=== PATIENT | female | born 1995 | race Caucasian/White ===

== ENCOUNTER 2019-06-20 05:38 | Inpatient (IN) | payer MEDICAID ==
[2019-06-20] VITALS (8 sets, daily range): BP systolic 102–121; BP diastolic 55–65; Ht 162.6 cm; Wt 90.3 kg
[~2019-06-20] VITALS: Ht 162.6 cm; Wt 90.3 kg
--- NOTE | ~2019-06-20 | OP ---
PATIENT NAME: HILARIA ORDAZ MEDICAL RECORD: [id number] :94 [id number] ADMISSION DATE:06/20/19 SURGEON: JUNE MOORE DO DATE OF OPERATION: 06/20/2019 PREOPERATIVE DIAGNOSIS: Scheduled repeat . POSTOPERATIVE DIAGNOSIS: Scheduled repeat . PRIMARY SURGEON: June Moore DO ANESTHESIA: Spinal. PROCEDURE: Repeat low transverse section via Pfannenstiel incision. FINDINGS: Male infant, weight 6 pounds 13 ounces, Apgars 9 and 9, delivered at 8:13 a.m. Nuchal cord times 1. Clear amniotic fluid. Normal appearing uterus, bilateral fallopian tubes and bilateral ovaries. SPECIMENS: Placenta and cord. ESTIMATED BLOOD LOSS: 800 cc. IV FLUIDS: 1500 cc. URINE OUTPUT: 400 cc clear urine. COMPLICATIONS: None. CONDITION: Stable. PROCEDURE IN DETAIL: The risks, benefits, alternatives and indications of the procedure were discussed with the patient. She voiced an understanding of the procedure and signed the consent. She was taken to the OR where spinal anesthesia was administered and found to be adequate. She was placed in the dorsal supine position with a leftward tilt. She was prepped and draped in the normal sterile fashion. A Pfannenstiel skin incision was made with the scalpel and carried down to the underlying layer of the fascia with the Bovie. The fascia was incised in the midline and extended laterally. The inferior aspect of the fascial incision was grasped with Hector clamps and the rectus muscle was dissected off sharply. Attention was then turned to the superior aspect of the fascial incision. The rectus muscle was dissected off in a similar fashion. The rectus muscle was in the midline down to the level of peritoneum. The peritoneum was identified and noted to be free of adherent bowel and entered bluntly. The peritoneum was further with gentle traction. The bladder blade was inserted. A bladder flap was created with Metzenbaum scissors. Then the uterus was incised in a transverse fashion. The incision was extended with cephalad-caudad traction. The infant's head was brought to the incision. Nuchal cord times 1 was noted and reduced over the head prior to delivery of the body. The infant was delivered without difficulty. Mouth and nose were suctioned. Cord was clamped and cut and the was handed off to awaiting pediatricians. The placenta was manually removed. The uterus was exteriorized and a moist lap was used to assure complete removal of placental membranes. The hysterotomy was closed with 0 Vicryl in a running locked fashion with good hemostasis noted. The posterior cul-de-sac was irrigated with warm OPERATIVE REPORT [id number] HILARIA ORDAZ sterile water. Uterus, ovaries and tubes were noted to be grossly normal and returned back to the abdominal cavity. A moist laparotomy sponge was used to assure complete removal of blood clots and fluid from the abdominal cavity. The hysterotomy was reinspected and noted to be hemostatic. Rectus muscle was closed with 2-0 Monocryl in a running fashion with good hemostasis. The fascial incision was closed with 0 Vicryl in a running fashion with good hemostasis. The skin was closed in a subcuticular fashion with 3-0 Monocryl and Dermabond covering. All needle, lap, sponge, and instrument counts were correct times 2. The patient tolerated the procedure well and she was taken to the recovery room in stable condition. TRANSINT:[id number] Voice Confirmation ID: [id number] DOCUMENT ID: [id number] JUNE MOORE DO CC: [id number] DICTATION DATE: 06/20/19900 MASTIC WORKER: 06/20/19 1149 ADM IN [place] [id number] [place] [id number]
[~2019-06-20 05:38] MED LIST: EZFE 200200 MG PO; MOTRIN600 MG PO; PERCOCET 5/3251 TA1 PO; PRENATAL COMPLE1 TAB PO
[2019-06-20 06:02] LABS: HEMATOCRIT 26.1 % (36.0-48.0); MCH 20.7 pg (26.0-34.0); MCHC 28.7 g/dL (31.0-37.0); MCV 71.9 fL (80.0-100.0); MEAN PLATELET VOLUME 8.8 fL (7.4-10.4); RBC 3.63 10x6/uL (4.00-5.40); RDW 16.9 % (11.5-14.5); WBC 6.3 10x3/uL (4.8-10.8)
[2019-06-20 06:08] LABS: HEMOGLOBIN 7.5 g/dL (12-16)
[2019-06-20 06:39] LABS: AMORPHOUS SEDIMENT <1+ /lpf (NONE SEEN); BACTERIA MANY /hpf (NEGATIVE); BILIRUBIN NEGATIVE (NEGATIVE); GLUCOSE NEGATIVE (NEGATIVE); GRANULAR CAST RARE /lpf (NONE SEEN); KETONE NEGATIVE (NEGATIVE); NITRITE NEGATIVE (NEGATIVE); RED CELLS - URINE OCC /hpf (0-5); SPECIFIC GRAVITY 1.025 (1.005-1.020); UROBILINOGEN NORMAL (NORMAL)
--- NOTE | 2019-06-20 08:43 | NUR ---
PRANEETH FROM RESPIRATORY CALLS TO UNIT TO REPORT CORD PH ART 7.29, AND VENOUS 7.34.
--- NOTE | 2019-06-20 09:13 | NUR ---
ICE CHIPS PROVIDED AND PT TOLERATING WITHOUT ANY DIFFICULTIES SWALLOWING OR ANY N/V. ICE APPLIED TO INCISION SITE. DRSG CDI. FUNDUS PALPATED AND FIRM. BLOOD INFUSING @125ML/HR VIA L.HAND 18GUAGE. LR W/30PIT INFUSING VIA R.HAND PIV @125ML/HR. PT REMAINS NUMB FROM UMBILICUS TO TOES FROM SPINAL. NO PAIN OR NEEDS. VSS. WILL PASS ON REPORT TO L&D NURSE AND TRANSPORT PT TO HER ROOM.
--- NOTE | 2019-06-20 09:28 | NUR ---
RECEIVED TO ROOM BY BED FROM RECOVERY, PT IS AWAKE AND ALERT. SHE RATES PAIN AT 0/10 AT THIS TIME, FUNDUS FIRM AT U/2 WITH LIGHT BLEEDING, NO CLOTS NOTED WITH MASSAGE. BIKINI INCISION COVERED WITH LARGE WHITE BANDAGE THAT IS CLEAN AND DRY. ICE PACK APPLIED. BOWEL SOUNDS HYPOACTIVE IN BOTH LOWER QUADRANTS. SCD'S BILAT PER ORDERS. IV TO RIGHT HAND INFUSING NS WITH 20 UNITS PITOCIN AT 125ML/HR. PRBC INFUSING TO L HAND IV, THIS IS PLACED ON PUMP AT 150ML/HR. PT DENIES NAUSEA BUT ALSO REFUSES ANYTHING TO DRINK. SIG OTHER AT BEDSIDE, SIDE RAILS UP X 2 WITH CALL LIGHT AND PHONE IN REACH.
--- NOTE | 2019-06-20 10:00 | NUR ---
LARGE CUP OF ICE WITH WATER AND STRAWBERRY JELLO PROVIDED PER HER REQUEST. FUNDUS FIRM AT U/2 WITH LIGHT BLEEDING NOTED. KIANA PAD CHANGED. NO OTHER NEEDS AT THIS TIME.
--- NOTE | 2019-06-20 10:15 | NUR ---
PRBC INFUSION HAS COMPLETED. FLUSHING WITH 100ML NS. PT RATES PAIN AT 3/10 AT THIS TIME.
--- NOTE | 2019-06-20 10:30 | NUR ---
PT CALLS OUT REQUESTING PAIN MED. THIS RN TO ROOM, SHE STATES THAT SHE SNEEZED AND PAIN IS NOW AT A 6/10. MORPHINE 2MG DILUTED IN 5ML NS GIVEN SIVP, TORDAL 30MG DILUTED IN 5ML NS GIVEN SIVP SCANNED TO EMAR. FUNDUS FIRM AT U/2 WITH LIGHT BLEEDING BUT NO CLOTS WITH MASSAGE. UNDERPAD CHANGED AND PT TILTED TO HER RIGHT SIDE WITH PILLOW TO BACK. CALL LIGHT IN REACH.
--- NOTE | 2019-06-20 10:50 | NUR ---
FUNDUS FIRM AT U/2 WITH LIGHT BLEEDING NOTED. PT STILL UNABLE TO MOVE HER LEGS AND RATES PAIN AT 0/10.
--- NOTE | 2019-06-20 11:30 | NUR ---
2ND UNIT PRBC STARTED, PT RATES PAIN AT 3/10. LARGE ICE WATER PER REQUEST.
--- NOTE | 2019-06-20 11:45 | NUR ---
DENIES NEEDS AT THIS TIME, TRANSFUSION RATE INCREASE TO 100ML/HR. CALL LIGHT IN REACH.
--- NOTE | 2019-06-20 12:30 | NUR ---
LARGE CUP OF ICE PER REQUEST. PT IS ABLE TO MOVE HER FEET AND STARTING TO MOVE HER LEGS BUT STATES THEY ARE "HEAVY FEELING AND NUMB" MAGUIRE CATH TO BEDSIDE DRAIN WITH 250ML CLEAR URINE NOTED.
--- NOTE | 2019-06-20 13:30 | NUR ---
2nd unit PRBC HAVE COMPLETED, NS INFUSING TO FLUSH. RATES PAIN AT 3/10, FUNDUS FIRM AT U/1 WITH LIGHT BLEEDING NOTED, UNDERPAD CHANGED, PT TILTED TO HER LEFT SIDE. LIGHTS TURNED DOWN PER REQUEST, CALL LIGHT IN REACH.
--- NOTE | 2019-06-20 14:15 | NUR ---
SECOND UNIT TRANSFUSION COMPLETED, LEFT HAND PIV FLUSHED AND SALINE LOCKED.
--- NOTE | 2019-06-20 14:30 | NUR ---
ORAL TEMP 97.9
--- NOTE | 2019-06-20 16:00 | NUR ---
pt resting with eyes closed and resp even, no signs of distress. pt left undisturbed.
[2019-06-20 16:32] LABS: BASOPHILS 0.2 % (0-2); EOSINOPHILS 0.5 % (0-7); IMMATURE GRANULOCYTES 0.7 % (0-5); LYMPHOCYTES 19.9 % (15-50); MCHC 29.4 g/dL (31.0-37.0); MEAN PLATELET VOLUME 9.1 fL (7.4-10.4); MONOCYTES 9.3 % (2-11); NEUTROPHILS 69.4 % (40-80); PLATELET COUNT 281 10x3/uL (130-400); RDW 17.8 % (11.5-14.5)
[2019-06-20 16:34] LABS: HEMOGLOBIN 9.7 g/dL (12-16); MCV 74.8 fL (80.0-100.0); RBC 4.41 10x6/uL (4.00-5.40)
--- NOTE | 2019-06-20 17:45 | NUR ---
PAIN MED GIVEN FOR PAIN THAT SHE RATES AT 10/10. SHE IS ALSO ASKING FOR SALINE LOCK TO BE REMOVED FROM RIGHT HAND, STATES SITE IS VERY TENDER AND PAINFUL WHEN TOUCHED. CATH REMOVED AND NOTED TO BE INTACT. PT ASK TO GET UP OUT OF BED. SHE IS ABLE TO MOVE BOTH LEGS FREELY WITHOUT COMPLAINT, MAGUIRE CATH REMOVED INTACT WITH TOTAL OF 1800ML CLEAR URINE OUTPUT NOTED. SHE IS ABLE TO MOVE HERSELF TO SITTING UP ON SIDE OF BED, DENIES NAUSEA OR DIZZINESS. AMB TO BATHROOM PER SELF AND ABLE TO VOID 300ML WITHOUT COMPLAINT. PROVIDED WITH WARM WET WASH CLOTH FOR KIANA CARE. KIANA PAD/MESH BRIEFS ON AND GOWN CHANGED. BACK TO BED AND POSITION SELF FOR COMFORT. SIG OTHER AT BEDSIDE WITH CALL LIGHT IN REACH.
--- NOTE | 2019-06-20 18:46 | NUR ---
PT AMB TO VENDING MACHINE WITH SIG OTHER.
--- NOTE | 2019-06-20 19:10 | NUR ---
PT IN NURSERY. THIS RN TO NURSERY TO INTRODUCE SELF TO PATIENT AT THIS TIME. PT AT SIDE OF WARMER WITHOUT DISTRESS. Ja MICHELLE RN
--- NOTE | 2019-06-20 20:00 | NUR ---
PT REC'D IN BED WITH S/O AT BEDSIDE AND SUPPORTIVE. SALINE LOCK TO THE LEFT HAND. SITE CLEAR. DRESSING TO ABDOMEN CDI. FUNDUS FIRM WITH SMALL BLEEDING NOTED.PT STATES THAT PAIN IS A 5 AFTER WALKING. WILL CNTINUE TO MONITOR.PERCOCET SUGGESTED TO PATIENT AT THIS TIME AND PT AGREEABLE. Ja MICHELLE RN
--- NOTE | 2019-06-20 20:13 | NUR ---
PT MEDICATED WITH PERCOCET 5 MG AT THIS TIME. TRINY MONITOR PAIN THIS SHIFT. Ja MICHELLE RN
--- NOTE | 2019-06-20 22:00 | NUR ---
PT REC'D IN NURSERY AT THIS TIME. PT STATES THAT PAIN IS 0/10 AT THIS TIME. Ja MICHELLE RN
--- NOTE | 2019-06-20 22:40 | NUR ---
PT AND SIG OTHER OFF UNIT AT THIS TIME.
--- NOTE | 2019-06-20 22:50 | NUR ---
PT AND SIG OTHER RETURN TO UNIT. TO ROOM 1276.
--- NOTE | 2019-06-20 22:58 | NUR ---
TOWELS,RAGS, PANTIES, PADS, KIANA BOTTLE AND BETADINE PROVIDED TO PT PREVFIOUS ONES PROVIDED HAVE BEEN ACCIDENTLY THROWN AWAY. PT DENIES FURTHER NEEDS AT THIS TIME.
--- NOTE | 2019-06-20 23:25 | NUR ---
pt to nursery via wheelchair. clint padilla rn
--- NOTE | 2019-06-21 01:20 | NUR ---
PT BACK TO ROOM AT THIS TIME VIA WEELCHAIR. DECREASED PAIN VERBALIZED AT THIS TIME. Ja MICHELLE RN
[2019-06-21 01:53] VITALS: BP 110/58
--- NOTE | 2019-06-21 01:53 | NUR ---
PT REC'D IN BED AT THIS TIME. VSS. HEATING PAD PROVIDED FOR BACK PAIN. Ja MICHELLE RN
--- NOTE | 2019-06-21 02:55 | NUR ---
PT MEDICATED WITH SCHEDULED MOTRIN AT THIS TIME. PAIN LEVEL OF 6. L CURT MICHELLE
[2019-06-21 03:39] LABS: BASOPHILS 0.2 % (0-2); EOSINOPHILS 0.8 % (0-7); HEMATOCRIT 36.5 % (36.0-48.0); HEMOGLOBIN 10.8 g/dL (12-16); IMMATURE GRANULOCYTES 0.9 % (0-5); LYMPHOCYTES 20.7 % (15-50); MCH 22.3 pg (26.0-34.0); MCHC 29.6 g/dL (31.0-37.0); MCV 75.3 fL (80.0-100.0); MEAN PLATELET VOLUME 8.8 fL (7.4-10.4); MONOCYTES 9.4 % (2-11); PLATELET COUNT 335 10x3/uL (130-400); RBC 4.85 10x6/uL (4.00-5.40); RDW 18.1 % (11.5-14.5); WBC 12.6 10x3/uL (4.8-10.8)
[2019-06-21 05:08] LABS: RAPID PLASMA REAGIN Non Reactive (Non Reactive)
[2019-06-21 05:41] VITALS: BP 93/53
--- NOTE | 2019-06-21 05:43 | NUR ---
PTREC'D INTERMITENTLY RESTING AT THIS TIME.STATESTHAT PAINIS A 09/18.MEDICATED WITHPERCOCET FOR PAIN. Ja MICHELLE RN
--- NOTE | 2019-06-21 06:30 | NUR ---
PT REC'D IN BED AT THIS TIME RESTING COMFORTABLY THIS AM. DID NOT AWAKEN. RESPS EVEN AND UNLABORED. Ja MICHELLE RN
--- NOTE | 2019-06-21 06:58 | NUR ---
pt sleeping on bedside report and completed outside of room. pt resp even and unlabored, color wnl, side rails up x2, bed in low position. will monitor.
[2019-06-21 07:33] VITALS: BP 118/58
--- NOTE | 2019-06-21 07:33 | NUR ---
AM ASSESSMENT COMPLETED. NAD NOTED. DENIES NEEDS OR CONCERNS, BREAKFAST TRAY PROVIDED AND PT NOW SITTING UPRIGHTIN BED. SPOUSE AT BS. RELAYS INFANT IS NOW IN NICU, REVIEWED PLAN OF CARE FOR TODAY, STATES WILL SHOWER AFTER BREAKFAST. CALL LIGHT IN EASY REACH, WILL MONITOR FOR CHANGE IN CONDITION.
--- NOTE | 2019-06-21 08:01 | NUR ---
AMBULATORY IN [place] WITH SPOUSE AT SIDE. NAD NOTED. PT SMILING AND TALKATIVE AT NURSE'S STATION THIS AM.
--- NOTE | 2019-06-21 08:40 | NUR ---
saline lock removed per pt request, catheter tip intact, bandaid applied to site, tolerates procedure well. pt states plans to shower after napping this am since she was up most of the night. will monitor for change in condition, breakfast tray removed from room.
--- NOTE | 2019-06-21 09:05 | NUR ---
DR OCHOA TO PT ROOM ON ROUNDS. REVIEWED PLAN OF CARE, LOW TRANSVERSE ABDOMINAL INCISION CDI WITH DERMABOND, PERIPAD PLACED OVER SITE TO PREVENT FRICTION IRRITATION. DENIES NEEDS OR CONCERNS AT THIS TIME. WILL MONITOR FOR CHANGE IN CONDITION.
--- NOTE | 2019-06-21 10:07 | NUR ---
pt c/o abdominal incisional pain, scheduled motrin and prn percocet given per pt request, cup of ice water and linens provided. no other needs voiced at this time. will continue to monitor.
--- NOTE | 2019-06-21 11:05 | NUR ---
PAIN REASSESSMENT, STATES LEVEL 4 OUT OF 10 ON NUMERIC PAIN SCALE, NAD NTOED. ASSISTED OOB TO SHOWER, LINENS CHANGED ON BED. ROOM DECLUTTERED. DENIES OTHER NEEDS OR CONCERNS. WILL MONITOR.
[2019-06-21 12:20] VITALS: BP 112/62
--- NOTE | 2019-06-21 12:20 | NUR ---
LUNCH TRAY PROVIDED, DENIES NEEDS OR CONCERNS, RESP EVEN AND UNLABORED, WILL MONITOR.
--- NOTE | 2019-06-21 13:10 | NUR ---
ROUNDS COMPLETED, TOLERATING PO, VOIDING WITHOUT DIFFICULTY, RATES PAIN 4/10 AT THIS TIME. RESP EVEN AND UNLABORED. WILL MONITOR FOR CHANGE IN STATUS. CALL LIGHT IN EASY REACH OF PT, SIDE RAILS UP X2, BED IN LOW POSITION, BED BRAKES LOCKED. K-PAD TO BACK IN USE.
--- NOTE | 2019-06-21 14:28 | NUR ---
PT C/O PAIN RATED 7/10 ON NUMERIC PAIN SCALE, ALSO REQUESTS TO GO HOME SINCE INFANT IS NOT DOING WELL AND WOULD LIKE TO SEE HIM SOON POSSIBLE. PHONED DR OCHOA, COBBLER UPPER MD, WHO STATES OKAY FOR DISCHARGE AND TO CALL CLINIC ON SUNDAY TO SCHEDULE FOLLOW UP APPOINTMENTS OR WITH QUESTIONS/CONCERNS. PT AND PT SPOUSE STATE UNDERSTANDING OF ALL INFORMATION PROVIDED.
[2019-06-21] MEDS ORDERED: PERCOCET 5-3251 TAB (14:36)
--- NOTE | 2019-06-21 15:10 | NUR ---
PATIENT INSTRUCTIONS REVIEWED WITH PT ON ROUTINE , POST-OPERATIVE SECTION CARE, , POST- WARNING SIGNS/SYMPTOMS TO REPORT, AND FOLLOW-UP REQUIREMENTS, HANDOUTS PROVIDED FOR REVIEW AT HOME, PRESCRIPTION ALSO PROVIDED WITH INSTRUCTIONS GIVEN. PT AND SPOUSE VOICE UNDERSTANDING OF ALL INFORMATION PROVIDED. NAD NOTED.
--- NOTE | 2019-06-21 15:30 | NUR ---
PT DISCHARGED TO HOME WITH ALL PERSONAL BELONGINGS VIA WHEELCHAIR, ACCOMPANIED BY SPOUSE AND THIS RN TO PRIVATE AUTO. RESP EVEN AND UNLABORED, NAD NOTED.
== END 2019-06-21 15:30 | disposition home or self-care (01) | DRG 788 ==
LOC: D.LD 05:38
PROVIDERS: ADMIT Student in an Organized Health Care Education/Training Program; ATTEND Student in an Organized Health Care Education/Training Program
PROC: 10D00Z1 Extraction of Products of Conception, Low, Open Approach (ICD-10-PCS; principal; 2019-06-20 07:30)
DX: O34.211 Maternal care for low transverse scar from previous cesarean delivery (principal); Z3A.39 39 weeks gestation of pregnancy; Z37.0 Single live birth; O69.81X0 Labor and delivery complicated by cord around neck, without compression, not applicable or unspecified

== ENCOUNTER 2019-07-21 14:05 | Emergency (ER) | payer MEDICAID ==
[~2019-07-21] VITALS: Ht 162.6 cm; Wt 85.0 kg
[~2019-07-21 14:05] MED LIST changes: +PERCOCET 5-3251 TAB
[2019-07-21 14:12] VITALS: Ht 162.6 cm; Wt 85.0 kg
[2019-07-21 15:39] LABS: HEMATOCRIT 38.6 % (36.0-48.0); HEMOGLOBIN 11.8 g/dL (12-16); LYMPHOCYTES 37.2 % (15-50); MCH 23.6 pg (26.0-34.0); MCHC 30.6 g/dL (31.0-37.0); MCV 77.2 fL (80.0-100.0); MEAN PLATELET VOLUME 9.1 fL (7.4-10.4); NEUTROPHILS 52.8 % (40-80); PLATELET COUNT 334 10x3/uL (130-400); RDW 22.3 % (11.5-14.5); WBC 5.9 10x3/uL (4.8-10.8)
[2019-07-21 15:39] LABS: BILIRUBIN NEGATIVE (NEGATIVE); GLUCOSE NEGATIVE (NEGATIVE); KETONE NEGATIVE (NEGATIVE); NITRITE POSITIVE (NEGATIVE); UROBILINOGEN NORMAL (NORMAL)
[2019-07-21 15:40] LABS: EPITHELIAL CELLS 0-5 /hpf (0-5); WHITE CELLS - URINE 0-5 /hpf (NEGATIVE)
[2019-07-21 15:41] LABS: BACTERIA FEW /hpf (NEGATIVE)
[2019-07-21 15:42] LABS: RED CELLS - URINE 25-50 /hpf (0-5)
[2019-07-21 15:52] LABS: CALC OSMOLALITY 276 mosm/kg (275-300); CARBON DIOXIDE 25.7 mmol/L (21.0-32.0); CHLORIDE - SERUM 104 mmol/L (98-107); CREATININE - SERUM 0.7 mg/dL (0.6-1.3); GLUCOSE 86 mg/dL (74-106); POTASSIUM - SERUM 3.9 mmol/L (3.5-5.1); SODIUM 140 mmol/L (136-145); UREA NITROGEN 11 mg/dL (7-18); eGFR NON AFRICAN AMERICAN > 90 mL/min (90-120)
[2019-07-21 15:58] LABS: ALBUMIN 3.3 g/dL (3.4-5.0); ALKALINE PHOSPHATASE 97 U/L (30-120); ALT (SGPT) 17 U/L (10-68); BILIRUBIN - TOTAL 0.35 mg/dL (0.2-1.3); PROTEIN - SERUM 6.7 g/dL (6.4-8.2)
[2019-07-21] MEDS ORDERED: TORADOL10 MG PO (17:40)
[2019-07-21] MEDS ORDERED: MACROBID100 MG PO (17:46)
[2019-07-21 18:30] VITALS: BP 127/73
== END 2019-07-21 18:30 | disposition home or self-care (01) ==
LOC: D.ER 14:05
PROVIDERS: Family Medicine
DX: N20.0 Calculus of kidney (principal); R10.31 Right lower quadrant pain; R30.0 Dysuria